=== PATIENT | male | born 1990 | race Two or more races ===

== ENCOUNTER 2020-04-13 15:57 | Emergency (ER) | payer OTHER ==
[2020-04-13] MEDS ORDERED: CEPHALEXIN 500 MG CAP PO STA (16:11)
[2020-04-13] MEDS ORDERED: DIPH,PERTUS(ACELL)TETVAC-LF 0.5 ML VIAL IM ONE (16:11)
--- NOTE | 2020-04-13 16:21 | ED ---
Trauma HPI <Cheri Huang - Last Filed: 04/13/20 18:03> - General Source: patient, family, RN notes reviewed Mode of arrival: wheelchair - History of Present Illness MD Complaint: injury <Evan Coleman - Last Filed: 04/13/20 18:15> - General Chief Complaint: Trauma Stated Complaint: leg lac-chainsaw Time Seen by Provider: 04/13/20 16:07 - History of Present Illness Initial Comments: This is a 29-year-old male with a benign past medical history who was using a chain saw his prior to arrival when he got his left leg by the backside of the chain saw. He is a single isolated injury is ambulatory afterwards he denies any numbness tingling or loss of function to his lower extremity on the left. Bleeding is controlled. No other injury reported patient is unsure when his last tetanus shot was. He only has minimal pain at this time he states. No pain medication requested gomodifying factors (Evan Coleman) - Related Data Previous Rx's Medication Instructions Recorded Cephalexin [Keflex] 500 mg PO Q6HR 3 Days #28 cap 04/13/20 Ibuprofen 800 mg PO Q6HR PRN #20 tablet 04/13/20 Allergies Allergy/AdvReac Type Severity Reaction Status Date / Time No Known Allergies Allergy Verified 04/13/20 16:00 Review of Systems ROS Other: All systems not noted in ROS Statement are negative. <Cheri Huang - Last Filed: 04/13/20 18:03> ROS Other: All systems not noted in ROS Statement are negative. <Evan Coleman - Last Filed: 04/13/20 18:15> ROS Statement: Those systems with pertinent positive or pertinent negative responses have been documented in the HPI. Past Medical History Past Medical History: No Reported History History of Any Multi-Drug Resistant Organisms: None Reported Past Surgical History: No Surgical Hx Reported Past Psychological History: No Psychological Hx Reported Smoking Status: Current every day smoker Past Alcohol Use History: None Reported Past Drug Use History: None Reported <Evan Coleman - Last Filed: 04/13/20 18:15> General Exam Limitations: no limitations General appearance: alert, in no apparent distress Head exam: Present: atraumatic, normocephalic, normal inspection Eye exam: Present: normal appearance Neck exam: Present: normal inspection Cardiovascular Exam: Present: other (Pulses are equal bilaterally to lower extremities.) Extremities exam: Present: full ROM, tenderness, normal capillary refill, other (Approximately 13 cm long laceration over the mid anterior lateral thigh no active bleeding no foreign body seen small amount of macerated tissue to see no sensorimotor vascular deficits no active bleeding seen at this time. No evidence of any bony involvement) <Evan Coleman - Last Filed: 04/13/20 18:15> - General Exam Comments Initial Comments: This is a well-developed well-nourished awake alert oriented times 3 male (Evan Coleman) Course Vital Signs 04/13/20 16:00 Temperature 98.1 F Pulse Rate 85 Respiratory 16 Rate Blood Pressure 153/92 O2 Sat by Pulse 99 Oximetry Procedures - Laceration Laceration #1 Consent Obtained: verbal consent Indication: laceration Site: lower extremity (Left upper leg) Size (cm): 12 Description: linear, irregular Depth: involves muscle layer Anesthetic Used: lidocaine 1%, with epi Anesthesia Technique: local infiltration Amount (mls): 9 Pre-repair: wound explored, irrigated extensively Type of Sutures: vicryl Size of Sutures: 4-0 Number of Sutures: 8 Technique: horizontal mattress Patient Tolerated Procedure: well <Cheri Huang - Last Filed: 04/13/20 18:03> - Laceration Laceration #1 Additional Comments: Wound was irrigated with 1 L of sterile water, closed with 8, 4-0 Vicryl sutures as well as 14 chelita. (Cheri Huang) Medical Decision Making - Radiology Data Radiology results: report reviewed (I did review the imaging and report no ), image reviewed <Evan Coleman - Last Filed: 04/13/20 18:15> - Medical Decision Making Patient's wound is repaired by my physician virtual assistant for [employer] Ollie. I did remove some excess tissue from the lateral aspect of the wound. Patient did tolerate this well be discharged. He placed on antibiotics. [id number] pain medication. (Evan Coleman) Disposition <Cheri Huang - Last Filed: 04/13/20 18:03> Is patient prescribed a controlled substance at d/c from ED?: No <Evan Coleman - Last Filed: 04/13/20 18:15> Clinical Impression: Laceration of left thigh Disposition: HOME SELF-CARE Condition: Good Instructions (If sedation given, give patient instructions): Laceration (ED) Additional Instructions: [id number] pain medication Prescriptions: Ibuprofen 800 mg PO Q6HR PRN #20 tablet PRN Reason: Pain Cephalexin [Keflex] 500 mg PO Q6HR 3 Days #28 cap Referrals: None,Stated [Primary Care Provider] - 1-2 days
[2020-04-13] MEDS ORDERED: LIDOCAINE 1%-EPI 1:100,000 20 ML VIAL SQ STA (16:56)
--- NOTE | 2020-04-13 16:56 | XR ---
EXAMINATION TYPE: XR femur LT DATE OF EXAM: 04/13/2020 COMPARISON: NONE HISTORY: Laceration TECHNIQUE: 4 views FINDINGS: I see no fracture nor dislocation. Knee joint and hip joint appear intact. There are no pat hologic calcifications. There is no definite radiopaque foreign body. There is large soft tissue lace ration defect over the lateral aspect of the mid thigh. IMPRESSION: Laceration deformity. No fracture seen.
[2020-04-13] MEDS ORDERED: BACITRACIN OINT 1 EACH PACKET TOPICAL ONE (17:53)
[2020-04-13 18:42] VITALS: BP 124/84; PULSE 77; RESP 20; TEMP 98.6
== END 2020-04-13 18:41 | disposition home or self-care (01) ==
LOC: EC 15:57
DX: S71.112A Laceration without foreign body, left thigh, initial encounter (principal); Z23 Encounter for immunization; F17.200 Nicotine dependence, unspecified, uncomplicated; W29.3XXA Contact with powered garden and outdoor hand tools and machinery, initial encounter; Y92.009 Unspecified place in unspecified non-institutional (private) residence as the place of occurrence of the external cause
CPT/HCPCS: 12004; 90471; 90715; 99283